=== PATIENT | male | born 1990 | race Caucasian/White ===

== ENCOUNTER 2016-08-27 09:57 | Emergency (ER) | payer SELFPAY ==
[~2016-08-27] VITALS: Ht 185.4 cm; Wt 88.1 kg
[~2016-08-27 09:57] MED LIST: HYDROCODON-ACE1 EAC7 PO
[2016-08-27] MEDS ORDERED: CIPRO250 MG PO (13:59)
[2016-08-27 14:02] LABS: HEMATOCRIT 45.4 % (38.0-50.0); MCH 27.9 PG (29.0-34.0); MCHC 32.6 G/DL (30.0-36.0); MCV 85.5 FL (86-99); MEAN PLAT.VOLUME 10.8 uM^3 (9.0-12.4); PLATELET COUNT 212 K/uL (156-360); RBC DIS.WIDTH-CV 12.8 % (11.8-14.6); RBC DIS.WIDTH-SD 39.4 % (39-53); RED BLOOD COUNT 5.31 M/uL (4.00-5.50); WHITE BLOOD COUNT 7.9 K/uL (4.1-10.2)
[2016-08-27 14:10] LABS: CHLORIDE 107 mEq/L (99-109); POTASSIUM 4.6 mEq/L (3.7-5.4); SODIUM 140 mEq/L (136-147)
[2016-08-27 14:12] LABS: GLUCOSE 98 mg/dL (70-99)
[2016-08-27 14:14] LABS: ANION GAP 6 MEQ/L (2-14); TOTAL BILIRUBIN 0.9 mg/dL (0.0-1.0)
[2016-08-27 14:16] LABS: ALKALINE PHOSPHATASE 45 IU/L (3-129); GFR ESTIMATE (CALCULATED) > 59 mL/min/
[2016-08-27 14:17] LABS: UREA NITROGEN (BUN) 12 mg/dL (9-23)
[2016-08-27 14:43] LABS: ERTH.SED.RATE 5 MM/HR (0-15)
[2016-08-27 16:49] VITALS: BP 126/74
== END 2016-08-27 16:50 | disposition home or self-care (01) ==
LOC: EME 09:57
PROVIDERS: Nurse Practitioner Family
DX: H20.9 Unspecified iridocyclitis (principal); H20.00 Unspecified acute and subacute iridocyclitis
CPT/HCPCS: 70481; 80053; 85027; 85651; 86141; 99281; 99285; J7040